=== PATIENT | male | born 1965 | race Caucasian/White ===

== ENCOUNTER 2025-03-02 09:47 | Outpatient (AMB) | payer BC, SELFPAY ==
--- OUTSIDE RECORDS SUMMARY | 2007-01-14 09:31 | XMS_ITS | Continuity of Care Document ---
Author Organization [facility] Address [address] [place] [address] Phone Care Team Providers Care Candy Department Manager Name Role Phone Ellis Estrella MD Unavailable Unavailable Allergies, Adverse Reactions, Alerts Substance Reaction Status Criticality No Known Allergies Active No Inform ation Procedures Procedure Date F/u Visit Incld Global Offic/outpt E&m [facility] Advance Directives Directive Yes / No Effective Date File Name No Information Encounters Encounter Description Practice Location Reason(s) For Visit Diagnoses Date Provider Providers Copied on Encounter [facility], [address], [place], [place], [id number], tel:[phone] [place] [facility] WW bp check (chief complaint) No Information Delores Corral. [address], [id number], [place]. tel:[phone] Referring Provider: Ellis Estrella MD, [address], [address]. tel:[phone] Offic/outpt E&m [facility], [address], [place], [place], [id number], tel:[phone] [place] [facility] WW physical for GYM (chief complaint) OBESITY UNSPECIFIED Delores Corral. [address], [id number], [place]. tel:[phone] Referring Provider: Ellis Estrella MD, [address], [address]. tel:[phone] Family History Family Member Type Diagnosis Age [...]
--- OUTSIDE RECORDS SUMMARY | 2008-11-11 10:29 | XMS_ITS | Continuity of Care Document ---
Author Organization [facility] Address [address] [place] [address] Phone Care Team Providers Care Biochemistry Specialist Name Role Phone Franky Katz MD Unavailable Unavailable Allergies, Adverse Reactions, Alerts Substance Reaction Status Criticality No Known Allergies Active No Inform ation Medications Medication Instructions Dosage Effective Dates (start - stop) Status Comments PHENERGAN VC WITH CODEINE 5-10-6.25SYRUP one teaspoon q 4 hours prn cough four oz. - Active Z-Estevan (Zithromax) TABLET as dir - Active Procedures Procedure Date Offic/outpt E&m New Mod Sever Ecg-routine 12 Lead; W/intrpt Advance Directives Directive Yes / No Effective Date File Name No Information Encounters Encounter Description Practice Location Reason(s) For Visit Diagnoses Date Provider Providers Copied on Encounter [facility] [address] [place] [address], [id number], tel:[phone] [facility] No Information Gianna Wilkins. [address] [place] [address], [address], [place]. tel:[phone] Referring Provider: Franky Burnett, [address] [place] [address], [address]. tel:[phone] [facility] [address], [place], [id number], tel:[phone] [facility]. No Information Gianna Wilkins. [address], [place], [address], [place]. tel:[phone] Referring Provider: Franky Burnett, [address], [place], [address]. tel:[phone] Offic/outpt E&m New Mod Sever [facility] [address], [place], [id number], tel:[phone] [facility], [facility]. No Information Gianna Wilkins. [address], [place], [address], [place]. tel:[phone] Referring Provider: Franky Burnett, [address], [place], [address]. tel:[phone] Family History Family Member Type Diagnosis Age At Onset No Information Payers Payer name Insurance type Covered green party ID Authoriza timahnaz(s) [facility] CI [id number] Social History Type Description Quantity Date Captured Comments Sex Male Smoking Status No Information Chief Complaint And Reason For Visit No Information Reason For Referral Reason For Referral No Information History Of Present Illness Encounter Date Complaint History Of Prese nt Illness No Information Functional Status Date Functional Assessmen t No Information Instructions Date Instruction Additional Infor mation No Information Assessments Type Assessment Date No Information Patient Care Teams Name Effective Dates (start - stop) Status Members No Information
--- NOTE | 2025-03-02 09:48 | A.OFFPC_ITS ---
Vital Signs 03/02/25 09:53 Height 5 ft 5.79 in Weight 203 lb 4 oz BMI 33.0 BP 158/86 H Blood Pressure Location Rt femoral Position Sitting Respiration 16 Pulse 67 Pulse Source Pulse Oximeter Temp 98 F Temp Source Temporal Artery Scan Pulse Oximetry (%) 97 Oxygen Delivery Method Room Air Intake Visit Reasons: physical Secretary Book Keeper Required: No Accompanied by: Self / Same As Patient Allergies No Known Allergies Allergy (Verified 03/02/25 10:04) Medication List - Last Reconciled 03/02/25 by Jenna Nichols PA-C sildenafil 100 mg PO DAILY PRN Tobacco use date assessed: 03/02/25 Dental Screening Dental Screen Date: 03/02/25 Did you have a dental visit in the last 12 months?: Yes Did you have a dental problem in the last 6 months where you did not have access to dental care?: No Was dental information given to patient?: Patient has dentist HPI physical HPI Details The patient is a 60-year-old male presenting for a physical examination and establishment of care. The patient has a history of hypertension, with a current blood pressure reading of 150/86 mmHg, which was rechecked and noted to be 187/29 mmHg. He reports anxiety during medical visits, which may contribute to elevated readings. A heart murmur was detected during the examination, described as loud and possibly indicative of stenosis. The patient has no history of chest pain or shortness of breath, and this is the first time a murmur has been noted. The patient has a history of psoriasis, primarily affecting him during the . He is followed by [facility] and has not been prescribed topical treatments. The patient underwent a colonoscopy on 01/27/2018, which revealed a small polyp that was removed. He was advised to return in five years, but follow-up appointments were repeatedly canceled. Social History - Family: , previously worke d at [employer]. - Healthcare Utilization: Regular visits to eye doctor and dentist three times a year. [facility] Medical History (Updated 03/02/25 @ 10:32 by Jenna Nichols PA-C) Class 1 obesity with body mass index (BMI) of 33.0 to 33.9 in adult Elevated blood pressure reading Preventative health care Psoriasis Heart murmur Annual physical exam Surgical History History of colonoscopy (~01/27/18) Family History Father Pancreatic cancer Mother High blood pressure Social History Housing: House Alcohol intake: current Alcohol intake frequency: 0-2 drinks per day Patient Tobacco Use Status: Never used Tobacco service: No Current occupational status: employed Cognitive needs: No Hearing needs: No Vision needs: Yes (rx glasses) Questionnaire PHQ-9 Over the last 2 weeks, how often have you been bothered by any of the following problems? 1. Little interest or pleasure in doing things: not at all 2. Feeling down, depressed, or hopeless: not at all 3. Trouble falling or staying asleep, or sleeping too much: not at all 4. Feeling tired or having little energy: not at all 5. Poor appetite or overeating: not at all 6. Feeling bad about yourself - or that you are a failure or have let yourself or your family down: not at all 7. Trouble concentrating on things, such as reading the newspaper or watching television: not at all 8. Moving or speaking so slowly that other people could have noticed. Or the opposite - being so fidgety or restless that you have been moving around a lot more than usual: not at all 9. Thoughts that you would be better off or of hurting yourself in some way: not at all Total score: 0 Depression Screening Interpretation: Negative Depression Screening Done: Yes 92696 - PHQ-9 Billing: Yes Source: Developed by Drs. Trevin Melo, Melba Vazquez, Trev Schrader and colleagues, with an educational brenda from [employer]. Thrive Questionnaire Date Thrive assessed: 03/02/25 I am a: Patient What is your living situation today?: I have a steady place to live Within the past 12 months, did the food you bought not last and you didn't have the money to get more?: Never true Within the past 12 months, did you worry whether your food would run out before you got money to buy more?: Never true Do you have trouble paying for medicines?: No Do you have trouble getting transportation to medical appointments?: No Do you have trouble paying your heating and electricity bill?: No Do you have trouble taking care of your child, family member or friend?: No Do you have trouble with day-to-day activities such as bathing, preparing meals, shopping, managing finances, etc.?: No Are you currently unemployed and looking for a job?: No Are you interested in more education?: No Please select the resources that you would like help with: None Currently or been in a relationship where the following occur: No concerns reported THRIVE Score: 0 AUDIT C Alcohol Use Questionnaire (AUDIT-C) 1. How often do you have a drink containing alcohol?: 4 or more times a week 2. How many drinks containing alcohol do you have on a typical day when you are drinking?: 1 or 2 3. How often do you have six or more drinks on one occasion?: Never Total Score: 4 Score Reviewed/Action Taken: No JUSTIN-7 AMB Questionnaire JUSTIN-7 Date JUSTIN - 7 assessed: 03/02/25 Feeling nervous, anxious, or on edge: 0 = Not at all Not being able to stop or control worryin = Not at all Worrying too much about different things: 0 = Not at all Trouble relaxin = Not at all Being so restless that it is hard to sit still: 0 = Not at all Becoming easily annoyed or irritable: 0 = Not at all Feeling afraid as if something awful might happen: 0 = Not at all Total JUSTIN-7 score (0-4 normal; 5-9 mild; 10-14 moderate; 15-21 severe): 0 Source: Developed by Drs. Trevin Melo, Melba Vazquez, Trev Schrader and colleagues, with an educational brenda from [employer]. JUSTIN-7 Assessment Billing JUSTIN-7 Assessment Tool: JUSTIN-7 Assessment 62418 Review of Systems Const Details: - Cardiovascular: Denies chest pain, orthopnea, or syncope. - Respiratory: Denies dyspnea, cough, or wheezing. - Dermatological: Reports psoriasis, primarily in winter. - Gastrointestinal: Denies abdominal pain, black or bloody stools, or unintentional weight loss. - Genitourinary: Denies dysuria or urinary hesitancy. - Neurological: Denies sleep apnea or sleep disturbances. All systems reviewed & are unremarkable except as noted in HPI and below Physical exam (Primary Care) Vital Signs: Last Vital Signs Temp 98 F 03/02/25 09:53 Pulse 67 03/02/25 09:53 Resp 16 03/02/25 09:53 BP 158/86 H 03/02/25 09:53 Pulse Ox 97 03/02/25 09:53 Oxygen Delivery Method Room Air 03/02/25 09:53 Care Plan Goal for BP management: <140/90 patient to monitor blood pressure over the next month and return with blood pressure diary BMI result Body Mass Index 33.0 BMI Assessment/Plan discussion: High BMI High, discussed plan: lifestyle, weight reduction, dietary, physical activity and alcohol moderation Tobacco/Smoking Status: Tobacco use Status Tobacco use date assessed 03/02/25 03/02/25 09:52 Patient Tobacco Use Status Never used Tobacco 03/02/25 09:57 PHQ-9: PHQ-9 Score PHQ-9: Total score 0 03/02/25 10:05 Depression Screening Interpretation: Negative Thrive Assessment: Date of Thrive Assessment Date Thrive assessed 03/02/25 03/02/25 09:52 Currently or been in a relationship where the following occur: No concerns reported Const Other: Appearance: Alert. Oriented X3. No acute distress. Head: Normal external exam. Normocephalic. Atraumatic. Eyes: Pupils are equal, round, and reactive to light. Extraocular movements intact. Conjunctiva and sclera normal. Eyelids normal. Ears: External auditory canal normal. Tympanic membranes normal. No trouble hearing. Throat: Pharynx normal. Uvula midline. Moist mucous membranes. Neck: Normal inspection. Neck supple. Full range of motion. No adenopathy. Thyroid Normal. No meningeal signs. No neck mass noted. Cardiovascular: Heart murmur noted. Normal heart rate and rhythm. Pulses normal throughout. Respiratory: No respiratory distress. Painless inspiration. Breath sounds normal. No wheezes/rales/rhonchi noted. Chest nontender. No accessory muscle usage noted or decreased air movement noted. Abdomen: Soft and nontender. No distention noted. No organomegaly noted. Back: No costovertebral angle tenderness. Full range of motion noted. Skin: Skin warm and dry. Normal skin color. Normal skin turgor. No rashes/lesions/lacerations noted. Psoriasis noted, mostly in winter. Extremities: No lower extremity edema. Extremities exhibit normal range of motion. Neuro: Oriented X 3. No motor deficit. No sensory deficit. Reflexes normal. Coding Level of Care Code New Pt Level 4 (53723) New Pt Prev Care 40-64y(79278) Diagnoses Annual physical exam Z00.00 Heart murmur R01.1 Psoriasis L40.9 Preventative health care Z00.00 Elevated blood pressure reading R03.0 Class 1 obesity with body mass index (BMI) of 33.0 to 33.9 in adult E66.811; Z68.33 Additional Codes JUSTIN-7 Assessment Billing - JUSTIN-7 Assessment Tool: JUSTIN-7 Assessment 47859 ([id number]) PHQ-9 - 65974 - PHQ-9 Billing: Yes ([id number]) Assessment & Plan Assessment & Plan (1) Annual physical exam: Code(s): Z00.00 - Encounter for general adult medical examination without abnormal findings Category: Medical (2) Heart murmur: Code(s): R01.1 - Cardiac murmur, unspecified Category: Medical Plan: The patient's blood pressure was noted to be elevated at 150/86 mmHg, with a subsequent reading of 187/29 mmHg, likely influenced by anxiety during the visit. The patient was advised to monitor blood pressure at home and return with readings in one to two months. (3) Psoriasis: Code(s): L40.9 - Psoriasis, unspecified Category: Medical Plan: The patient has a history of psoriasis, primarily in winter, with no current topical treatment prescribed. Continued follow-up with dermatology is recommended. (4) Preventative health care: Code(s): Z00.00 - Encounter for general adult medical examination without abnormal findings Category: Medical Plan: The patient is overdue for a follow-up colonoscopy, initially scheduled five years post-2018, but repeatedly canceled. Arrangements will be made to reschedule the procedure. (5) Elevated blood pressure reading: Code(s): R03.0 - Elevated blood-pressure reading, without diagnosis of hypertension Category: Medical Plan: The patient's blood pressure was noted to be elevated at 150/86 mmHg, with a subsequent reading of 187/29 mmHg, likely influenced by anxiety during the visit. The patient was advised to monitor blood pressure at home and return with readings in one to two months. (6) Class 1 obesity with body mass index (BMI) of 33.0 to 33.9 in adult: Code(s): E66.811 - Obesity, class 1; Z68.33 - Body mass index [BMI] 33.0-33.9, adult Category: Medical Plan: Patient to improve diet and exercise regimen. Condition is chronic and stable will continue to monitor. Plan Plan Patient was informed and verbally consented to the use of an ambient scribe for clinic note documentation during this visit. 1. Hypertension The patient's blood pressure was noted to be elevated at 150/86 mmHg, with a subsequent reading of 187/29 mmHg, likely influenced by anxiety during the visit. The patient was advised to monitor blood pressure at home and return with readings in one month. 2. Heart Murmur A loud heart murmur was detected, prompting a referral for an echocardiogram to assess for potential stenosis. A cardiology referral will be considered based on the echocardiogram results. 3. Psoriasis The patient has a history of psoriasis, primarily in winter, with no current topical treatment prescribed. Continued follow-up with dermatology is recommended. 4. Preventative Care: Colonoscopy The patient is overdue for a follow-up colonoscopy, initially scheduled five years post-2018, but repeatedly canceled. Arrangements will be made to reschedule the procedure. During the visit, I discussed the patient's elevated blood pressure readings and the potential influence of anxiety on these measurements. I explained the significance of the detected heart murmur and the need for an echocardiogram to assess its nature. We also reviewed the patient's overdue colonoscopy and the importance of rescheduling it. Orders: Orders Complete Blood Count Auto Diff Today Z00.00 - Encounter for general adult medical examination without abnormal findings Hemoglobin A1c Today Z00.00 - Encounter for general adult medical examination without abnormal findings TSH reflex Free T4 Today Z00.00 - Encounter for general adult medical examination without abnormal findings Lipid Panel Today Z00.00 - Encounter for general adult medical examination without abnormal findings Liver Panel Today Z00.00 - Encounter for general adult medical examination without abnormal findings C Reactive Protein Today Z00.00 - Encounter for general adult medical examination without abnormal findings Comprehensive [place]. Panel Fast Today Z00.00 - Encounter for general adult medical examination without abnormal findings PSA,Total (Free>4and<10) Today Z00.00 - Encounter for general adult medical examination without abnormal findings Vitamin B12 and Folate Today Z00.00 - Encounter for general adult medical examination without abnormal findings Vitamin D 25-OH Total Today Z00.00 - Encounter for general adult medical examination without abnormal findings Magnesium Today Z00.00 - Encounter for general adult medical examination without abnormal findings CA echo transthoracic complete Today R01.1 - Cardiac murmur, unspecified Referrals Gastroenterology Referral Z12.11 - Encounter for screening for malignant neoplasm of colon Patient Instructions: - Monitor blood pressure at home daily and record readings. - Schedule and complete the recommended blood tests before the next visit. - Await scheduling for an echocardiogram and follow up with cardiology if necessary. - Reschedule and complete the overdue colonoscopy.
[2025-03-02 09:53] VITALS: BP 158/86; PULSE 67; RESP 16; TEMP 36.6; O2SAT 97; BMI 33.0
== END 2025-03-02 10:31 | disposition home or self-care (01) ==
LOC: HO.HMCSH 09:47
PROVIDERS: PCP Internal Medicine; Visit Provider Physician Assistant Medical
DX: Z00.00 Encounter for general adult medical examination without abnormal findings (principal); R01.1 Cardiac murmur, unspecified; L40.9 Psoriasis, unspecified; E66.811 Obesity, class 1; Z68.33 Body mass index [BMI] 33.0-33.9, adult; R03.0 Elevated blood-pressure reading, without diagnosis of hypertension

== ENCOUNTER → 2025-03-02 09:47 | Outpatient (BNVA) | payer BC, SELFPAY | PROVIDERS: PCP Internal Medicine; Visit Provider Physician Assistant Medical | DX: Z00.00 Encounter for general adult medical examination without abnormal findings (principal); I10 Essential (primary) hypertension; R01.1 Cardiac murmur, unspecified; L40.9 Psoriasis, unspecified; R03.0 Elevated blood-pressure reading, without diagnosis of hypertension; E66.811 Obesity, class 1; Z68.33 Body mass index [BMI] 33.0-33.9, adult | CPT/HCPCS: 96127 ==

== ENCOUNTER 2025-04-02 09:32 | Outpatient (AMB) | payer BC, SELFPAY ==
[2025-04-02 09:33] VITALS: BP 158/72; PULSE 70; RESP 14; TEMP 36.7; O2SAT 97; BMI 31.3
--- NOTE | 2025-04-02 09:33 | MHC.PC.OV ---
Vital Signs 04/02/25 09:33 04/02/25 12:42 Height 5 ft 6.14 in Weight 195 lb BMI 31.3 BP 158/72 H 141/68 H Blood Pressure Location Rt brachial Position Sitting Respiration 14 Pulse 70 65 Pulse Source Pulse Oximeter Temp 98.1 F Temp Source Temporal Artery Scan Pulse Oximetry (%) 97 Oxygen Delivery Method Room Air Intake Visit Reasons: 1 month follow up Resource Coordinator Required: No Accompanied by: Self / Same As Patient Allergies No Known Allergies Allergy (Verified 04/02/25 12:42) Medication List - Last Reconciled 04/02/25 by Jenna Nichols PA-C ketoconazole 2% topical sildenafil 100 mg PO DAILY PRN Tobacco use date assessed: 04/02/25 Dental Screening Dental Screen Date: 03/02/25 HPI 1 month follow up HPI Details The patient is a 60-year-old male presenting for a blood pressure check. The patient has a history of elevated blood pressure readings at home, prompting lifestyle modifications including reduced alcohol consumption and dietary changes such as cutting out salt and reducing portion sizes. He has successfully lost weight, reducing from 203 pounds to 194 pounds. Despite these changes, the patient expresses a desire to avoid medication if possible, although he acknowledges that his blood pressure remains elevated. Blood pressure readings during the visit varied, with measurements including 173/93 mmHg and 141/68 mmHg. The patient reports no symptoms of dizziness or feeling unwell despite elevated readings. He continues to consume a glass or two of wine with dinner but has eliminated beer and scotch, opting for tea instead. Social History - Alcohol consumption: Reduced intake, now limited to a glass or two of wine with dinner, no beer or scotch. - Dietary habits: Eliminated salt and reduced portion sizes to manage blood pressure. - Weight management: Successfully lost weight from 203 pounds to 194 pounds. [facility] Medical History (Updated 04/02/25 @ 12:49 by Jenna Nichols PA-C) Hypertension Class 1 obesity with body mass index (BMI) of 33.0 to 33.9 in adult Elevated blood pressure reading Preventative health care Psoriasis Heart murmur Annual physical exam Surgical History History of colonoscopy (~01/27/18) Family History Father Pancreatic cancer Mother High blood pressure Social History Housing: House Alcohol intake: current Alcohol intake frequency: 0-2 drinks per day Patient Tobacco Use Status: Never used Tobacco service: No Current occupational status: employed Cognitive needs: No Hearing needs: No Vision needs: Yes (rx glasses) Questionnaire PHQ-9 Over the last 2 weeks, how often have you been bothered by any of the following problems? 1. Little interest or pleasure in doing things: not at all 2. Feeling down, depressed, or hopeless: not at all 3. Trouble falling or staying asleep, or sleeping too much: not at all 4. Feeling tired or having little energy: not at all 5. Poor appetite or overeating: not at all 6. Feeling bad about yourself - or that you are a failure or have let yourself or your family down: not at all 7. Trouble concentrating on things, such as reading the newspaper or watching television: not at all 8. Moving or speaking so slowly that other people could have noticed. Or the opposite - being so fidgety or restless that you have been moving around a lot more than usual: not at all 9. Thoughts that you would be better off or of hurting yourself in some way: not at all Total score: 0 Depression Screening Interpretation: Negative Depression Screening Done: Yes 21674 - PHQ-9 Billing: Yes Source: Developed by Drs. Trevin Melo, Melba Vazquez, Trev Schrader and colleagues, with an educational brenda from [employer]. Thrive Questionnaire Date Thrive assessed: 03/02/25 I am a: Patient What is your living situation today?: I have a steady place to live Within the past 12 months, did the food you bought not last and you didn't have the money to get more?: Never true Within the past 12 months, did you worry whether your food would run out before you got money to buy more?: Never true Do you have trouble paying for medicines?: No Do you have trouble getting transportation to medical appointments?: No Do you have trouble paying your heating and electricity bill?: No Do you have trouble taking care of your child, family member or friend?: No Do you have trouble with day-to-day activities such as bathing, preparing meals, shopping, managing finances, etc.?: No Are you currently unemployed and looking for a job?: No Are you interested in more education?: No Please select the resources that you would like help with: None Currently or been in a relationship where the following occur: No concerns reported THRIVE Score: 0 AUDIT C Alcohol Use Questionnaire (AUDIT-C) 1. How often do you have a drink containing alcohol?: 4 or more times a week 2. How many drinks containing alcohol do you have on a typical day when you are drinking?: 1 or 2 3. How often do you have six or more drinks on one occasion?: Never Total Score: 4 Score Reviewed/Action Taken: No JUSTIN-7 AMB Questionnaire JUSTIN-7 Date JUSTIN - 7 assessed: 03/02/25 Feeling nervous, anxious, or on edge: 0 = Not at all Not being able to stop or control worryin = Not at all Worrying too much about different things: 0 = Not at all Trouble relaxin = Not at all Being so restless that it is hard to sit still: 0 = Not at all Becoming easily annoyed or irritable: 0 = Not at all Feeling afraid as if something awful might happen: 0 = Not at all Total JUSTIN-7 score (0-4 normal; 5-9 mild; 10-14 moderate; 15-21 severe): 0 Source: Developed by Drs. Trevin Melo, Melba Vazquez, Trev Schrader and colleagues, with an educational brenda from [employer]. JUSTIN-7 Assessment Billing JUSTIN-7 Assessment Tool: JUSTIN-7 Assessment 44630 Review of Systems Const Details: - Cardiovascular: Denies dizziness or feeling unwell despite elevated blood pressure readings. All systems reviewed & are unremarkable except as noted in HPI and below Physical exam (Primary Care) Vital Signs: Last Vital Signs Temp 98.1 F 04/02/25 09:33 Pulse 70 04/02/25 09:33 Resp 14 04/02/25 09:33 BP 158/72 H 04/02/25 09:33 Pulse Ox 97 04/02/25 09:33 Oxygen Delivery Method Room Air 04/02/25 09:33 Care Plan Goal for BP management: <140/90 patient to continue monitor his blood pressure improve his diet and exercise and return in 2 months for repeat blood pressure check may consider starting on blood pressure medication at that time discussed at this visit patient did not want to start medication at this time BMI result Body Mass Index 31.3 BMI Assessment/Plan discussion: High BMI High, discussed plan: lifestyle, weight reduction, dietary, physical activity, alcohol moderation and other Tobacco/Smoking Status: Tobacco use Status Tobacco use date assessed 04/02/25 04/02/25 09:34 Patient Tobacco Use Status Never used Tobacco 04/02/25 09:34 PHQ-9: PHQ-9 Score PHQ-9: Total score 0 04/02/25 10:00 Depression Screening Interpretation: Negative Thrive Assessment: Date of Thrive Assessment Date Thrive assessed 03/02/25 04/02/25 09:34 Currently or been in a relationship where the following occur: No concerns reported Const Other: Appearance: Alert. Oriented X3. No acute distress. Head: Normal external exam. Normocephalic. Atraumatic. Eyes: Pupils are equal, round, and reactive to light. Extraocular movements intact. Conjunctiva and sclera normal. Eyelids normal. Ears: External auditory canal normal. Tympanic membranes normal. Earwax noted. Throat: Pharynx normal. Uvula midline. Moist mucous membranes. Neck: Normal inspection. Neck supple. Full range of motion. Cardiovascular: Blood pressure readings varied, with a high of 173/93 and a low of 141/68. Normal heart rate and rhythm. Heart sound normal. No murmurs noted. Pulses normal throughout. Respiratory: No respiratory distress. Painless inspiration. Breath sounds normal. No wheezes/rales/rhonchi noted. Chest nontender. No accessory muscle usage noted or decreased air movement noted. Back: Full range of motion noted. Skin: Skin warm and dry. Normal skin color. Normal skin turgor. No rashes/lesions/lacerations noted. Extremities: No lower extremity edema. Extremities exhibit normal range of motion. Neuro: Oriented X 3. No motor deficit. No sensory deficit. Reflexes normal. Office Procedures Flu Questionnaire Does the patient have a severe egg allergy?: No Does the patient have severe life threatening allergies?: No Does the patient have a fever or illness today?: No Has the patient ever had Guillain-[place] Syndrome?: No Has the patient ever had any past reaction to a flu shot?: No Immunizations Fluarix [id number] (PF) 45 mcg (15 mcg x 3)/0.5 mL IM syringe Performing Provider: Jenna Nichols PA-C [facility] [place] [facility] Documented (not given) by: ANTHONY Aburto on 04/02/25 09:43 Reason Not Given: Patient Refused Results Reviewed Results Reviewed: - Labs: Glucose normal, kidney function normal, sodium normal, potassium normal, chloride normal, carbon dioxide normal, liver enzymes normal, PSA normal, vitamin B12 normal, thyroid normal, magnesium normal, CBC normal. - Pending: Folic acid, hemoglobin A1c, vitamin D. Coding Level of Care Code Est Pt Level 4 (40165) Complex EM visit Add On G2211 Diagnoses Hypertension I10 Additional Codes JUSTIN-7 Assessment Billing - JUSTIN-7 Assessment Tool: JUSTIN-7 Assessment 37395 ([id number]) PHQ-9 - 07184 - PHQ-9 Billing: Yes ([id number]) Assessment & Plan Assessment & Plan (1) Hypertension: Code(s): I10 - Essential (primary) hypertension Category: Medical Plan: The patient is advised to continue monitoring blood pressure at home and maintain lifestyle modifications, including reduced alcohol intake and dietary changes. A follow-up appointment is scheduled in two months to reassess blood pressure and consider medication if readings remain elevated. Plan Plan Patient was informed and verbally consented to the use of an ambient scribe for clinic note documentation during this visit. 1. Essential Hypertension The patient is advised to continue monitoring blood pressure at home and maintain lifestyle modifications, including reduced alcohol intake and dietary changes. A follow-up appointment is scheduled in two months to reassess blood pressure and consider medication if readings remain elevated. During the visit, we discussed the importance of lifestyle modifications in managing hypertension, including dietary changes and reducing alcohol consumption. I advised the patient to continue monitoring his blood pressure at home and scheduled a follow-up in two months to reassess his condition. We agreed to consider medication if his blood pressure remains elevated at that time. Orders: Orders Influenza [id number] Immunization Today Z23 - Encounter for immunization Patient Instructions: - Continue monitoring blood pressure at home regularly. - Maintain dietary changes, including reducing salt intake and portion sizes. - Limit alcohol consumption to a glass or two of wine with dinner. - Return for a follow-up appointment in two months to reassess blood pressure.
[2025-04-02 12:42] VITALS: BP 141/68; PULSE 65
== END 2025-04-02 10:26 | disposition home or self-care (01) ==
LOC: HO.HMCSH 09:32
PROVIDERS: PCP Internal Medicine; Visit Provider Physician Assistant Medical
DX: I10 Essential (primary) hypertension (principal); Z23 Encounter for immunization

== ENCOUNTER → 2025-04-02 09:32 | Outpatient (BNVA) | payer BC, SELFPAY | PROVIDERS: PCP Internal Medicine; Visit Provider Physician Assistant Medical | DX: I10 Essential (primary) hypertension (principal); Z28.21 Immunization not carried out because of patient refusal | CPT/HCPCS: 90471; 96127 ==

== ENCOUNTER → 2025-04-05 07:48 | Outpatient (REF) | payer BC, SELFPAY ==
--- OUTSIDE RECORDS SUMMARY | 2007-01-14 09:31 | XMS_ITS | Continuity of Care Document ---
Author Organization [facility] Address [address] [place] [address] Phone Care Team Providers Care Province Archivist Name Role Phone Ellis Estrella MD Unavailable Unavailable Allergies, Adverse Reactions, Alerts Substance Reaction Status Criticality No Known Allergies Active No Inform ation Procedures Procedure Date F/u Visit Incld Global Offic/outpt E&m [facility] Advance Directives Directive Yes / No Effective Date File Name No Information Encounters Encounter Description Practice Location Reason(s) For Visit Diagnoses Date Provider Providers Copied on Encounter [facility], [address], [place], [place], [id number], tel:[phone] [facility] WW bp check (chief complaint) No Information Delores Corral. [address], [id number], [place]. tel:[phone] Referring Provider: Ellis Estrella MD, [address], [address]. tel:[phone] Offic/outpt E&m [facility], [address], [place], [place], [id number], tel:[phone] [facility] WW physical for GYM (chief complaint) OBESITY UNSPECIFIED Delores Corral. [address], [id number], [place]. tel:[phone] Referring Provider: Ellis Estrella MD, [address], [address]. tel:[phone] Family History Family Member Type Diagnosis Age At Onset No Information Payers Payer name Insurance type Covered libertarian ID Authoriza timahnaz(s) No Information Social History Type Description Quantity Date Captured Comments Sex Male Smoking Status No Information Vital Signs Date / Time: Height Weight BMI Pulse Rate Blood Pressure Temperature Respiratory Rate Body Surface Area Head Circumference Head Circ. Percentile Wt./Jaime. Percentile BMI percentile Pulse Ox Inhaled Ox 3:20 PM 78 /min 126/90 mm[Hg] 97.70 F 16 /min 1:39 PM 120/70 mm[Hg] Chief Complaint And Reason For Visit From encounter dated '01/14/2007 13:31'. bp check (chief complaint) Reason For Referral Reason For Referral No Information History Of Present Illness Encounter Date Complaint History Of Prese nt Illness bp check physical for GYM Functional Status Date Functional Assessmen t No Information Instructions Date Instruction Additional Infor mation No Information Assessments Type Assessment Date No Information Patient Care Teams Name Effective Dates (start - stop) Status Members No Information
--- OUTSIDE RECORDS SUMMARY | 2008-11-11 10:29 | XMS_ITS | Continuity of Care Document ---
Author Organization [facility] Address [address] [place] [address] Phone Care Team Providers Care Pipe Fitter Gas Pipe Name Role Phone Franky Katz MD Unavailable [...] Diagnoses Date Provider Providers Copied on Encounter [facility] [address] [place] [address], [id number], tel:[phone] [facility]. No Information Gianna Wilkins. [address] [place] [address], [address], [place]. tel:[phone] Referring Provider: Franky Burnett, [address] [place] [address], [address]. tel:[phone] [facility] [address], [place], [id number], tel:[phone] [facility]. No Information Gianna Wilkins. [address], [place], [address], [place]. tel:[phone] Referring Provider: Franky Burnett, [address], [place], [address]. tel:[phone] Offic/outpt E&m New Mod Sever [facility] [address], [place], [id number], tel:[phone] [facility]. No Information Gianna Wilkins. [address], [place], [address], [place]. tel:[phone] Referring Provider: Franky Burnett, [address], [place], [address]. tel:[phone] Family History Family Member Type Diagnosis Age At Onset No Information Payers Payer name Insurance type Covered republican ID Authoriza timahnaz(s) [facility] [place] [id number] Social History Type Description Quantity Date Captured [...]
--- OUTSIDE RECORDS SUMMARY | 2025-04-05 07:51 | XMS_ITS ---
Author Name Mushtaq Ardon Address Unknown Organization [facility] Care Team Providers Care Cab Station Attendant Name Role Phone Unavailable Primary Care Physician Unavailab le History Of Present Illness This is a 60 year old male who is an established patient who is being seen for an evaluation of skin lesions.Location: left medial superior eyelidDuration: yearsPertinent History: family history of non-melanoma skin cancerPertinent Negatives: no history of previous skin cancer, no history of melanoma, and no family history of melanomaAdditional Visit Reasons: education and counseling about sun exposure, evaluation for suspicious growths, and evaluation of current neviAdditional History: Patientnotes bump on right neck and skin tag on left eyelid, states neither are bothersome. Medications Medication Generic Name RxNorm Strength Strength Unit Route Dose Dose Form Frequency Date Started Date Ended Status Indication Sig ketoconazol e ketocona zole 201816 2 % Topica l shamp oo BIW 04/01/20 active Lath er onto scal p once ryan y and let sit for 5-10 maru christie. Alte rnat e with OTC medi rodrigo d sham poos . Problems Problem Code Type Status Date of Diagnosis Da te of Resolution Seborrheic dermatitis (disorder) 83890979(SNO MED) Diagnosis active 04/01/2025 Melanocytic nevus (disorder) 229393770(SN OMED) Diagnosis active 04/01/2025 Disorder of skin (disorder) 97146836(SNO MED) Diagnosis active 04/01/2025 Seborrheic keratosis (disorder) 168516824(SN OMED) Diagnosis active 04/01/2025 Disorder of pigmentation (disorder) 100071470(SN OMED) Diagnosis active 04/01/2025 Hemangioma of skin and subcutaneous tissue (disorder) 764424976(SN OMED) Diagnosis active 04/01/2025 Benign neoplasm of skin of left lower limb (disorder) 444275569838 9109(SNOMED) Diagnosis active 04/01/2025 Benign neoplasm of skin of right lower limb (disorder) 502686066215 9100(SNOMED) Diagnosis active 04/01/2025 Patient encounter status (finding) 256549536(SN OMED) Diagnosis active 04/01/2025 Neoplasm of uncertain behavior of skin (disorder) 20842031(SNO MED) Diagnosis active 02/04/2024 Actinic keratosis (disorder) (SN OMED) Diagnosis active 02/04/2024 Melanocytic nevus (disorder) 630505487(SN OMED) Diagnosis active 02/04/2024 Disorder of skin (disorder) 08969184(SNO MED) Diagnosis active 02/04/2024 Seborrheic keratosis (disorder) 085431649(SN OMED) Diagnosis active 02/04/2024 Disorder of pigmentation (disorder) 519462621(SN OMED) Diagnosis active 02/04/2024 Hemangioma of skin and subcutaneous tissue (disorder) 041961413(SN OMED) Diagnosis active 02/04/2024 Benign neoplasm of skin of left lower limb (disorder) 775770560507 9109(SNOMED) Diagnosis active 02/04/2024 Benign neoplasm of skin of right lower limb (disorder) 081539456307 9100(SNOMED) Diagnosis active 02/04/2024 Patient encounter status (finding) 385043907(SN OMED) Diagnosis active 02/04/2024 Melanocytic nevus (disorder) 629286860(SN OMED) Diagnosis active 12/17/2022 Disorder of skin (disorder) 74748275(SNO MED) Diagnosis active 12/17/2022 Seborrheic keratosis (disorder) 365449428(SN OMED) Diagnosis active 12/17/2022 Disorder of pigmentation (disorder) 804968063(SN OMED) Diagnosis active 12/17/2022 Hemangioma of skin and subcutaneous tissue (disorder) 579916842(SN OMED) Diagnosis active 12/17/2022 Benign neoplasm of skin of left lower limb (disorder) 624787235217 9109(SNOMED) Diagnosis active 12/17/2022 Patient encounter status (finding) 143776406(SN OMED) Diagnosis active 12/17/2022 Eczema (disorder) 45724630(SNO MED) Problem active Results No data Encounters Service provided at [facility], [address] [place] [address], [address], [place], [place] [id number]. Office phonenumber is [phone]. Office fax number is [phone]. Encounter Diagnosis Location Date / Time Type Seborrheic Dermatitis (L21.8 )Melanocytic Nevi (D22.9)Sebaceous Hyperplasia (L73.8)Seborrheic Keratoses (L82.1)Stucco Keratoses (L82.1)Lentigines (L81.4)Barajas Angiomas (D18.01)Dermatofibroma (D23.72,D23.71)Skin Education (Z71.89)Attestation () [facility] 04/01/2025 12:15:00 [facility] [id number] Reason For Referral No data Procedures Procedure Date Documentation of current medications (pr ocedure) 02/04/2024 12:00 am UTC Destruction of premalignant skin lesion (procedure) 02/04/2024 12:00 am [place] Shave biopsy (procedure) 02/04/2024 12:0 0 am UTC Documentation of current medications (pr ocedure) 12/17/2022 12:00 am [place] Documentation of past medical history (p rocedure) Review Of Systems Provider reviewed on Apr 01, 2025.A focused review of systems was performed including Hematologic /Lymphatic and Integumentary.No Problems With Healing, No Problems With Scarring (hypertrophic Or Keloid), And No Problems With Bleeding. Assessment 1.Seborrheic DermatitisCounselingPrescription: ketoconazole 2 % shampoo TP Frequency: BIW2.Melanocytic NeviCounseling3.Sebaceous HyperplasiaCounseling4.Seborrheic KeratosesCounseling5.Stucco Keratoses Counseling6.LentiginesCounseling7.Barajas AngiomasCounseling8.DermatofibromaCounseling9.Skin Educatio [id number].AttestationScribe Attestation:. Plan of Care Future visit for 04/01/2026 - Follow up in 1 year for: Skin Check. Other Instructions: CSE slot. Other Instructions: CSE slot. Code Detail Instructions [id number] ketoconazole 2 % shampoo Lather onto scalp once daily and let sit for 5- 10 minutes. Alternate with OTC medicated shampoos. Instructions * I counseled the patient regarding the following:Skin care: Emollients, shampoos with tar, selenium or zinc pyrithione can improve seborrheic dermatitis.Expectations: Seborrheic Dermatitis is chronic in nature with periods of remissions and flares. Flares can be triggered by stress.Contact office if: Seborrheic dermatitis worsens, or fails to improve despite several months of treatment.I recommended the following: CleansersMoisturizersTopical SteroidsThe following medication counseling was provided:Topical Ketoconazole Counseling: Patient counseled that this medication may cause skin irritation or allergic reactions. In the event of skin irritation, the patient was advised to reduce the amount of the drug applied or use it less frequently. The patient verbalized understanding of the properuse and possible adverse effects of ketoconazole. All of the patient's questions and concerns were a ddressed. * I counseled the patient regarding the following:Instructions: Monthly self- skin checks to monitor for any changes in moles are recommended.Expectations: Benign Nevi are pigmented nests of cells within the skin. No treatment is necessary.Contact Office if: Any moles change in size, shape or color; itch, burn or bleed. * I counseled the patient regarding the following:Skin Care: Sebaceous Hyperplasia can be treated with electrodesiccation or laser.Expectations: Sebaceous Hyperplasia are benign, enlarged oil glands within the skin. * I counseled the patient regarding the following:Skin Care: Seborrheic Keratoses are benign. No treatment is necessary.Expectations: Seborrheic Keratoses are benign warty growths. Patients get more ofthem as they age. * I counseled the patient regarding the following:Skin Care: Seborrheic Keratoses are benign. No treatment is necessary.Expectations: Seborrheic Keratoses are benign warty growths. Patients get more ofthem as they age. * I counseled the patient regarding the following:Expectations: Lentigines are benign pigmented lesions that occur on sun-exposed and sun-damaged skin.I recommended the following: Sunscreen * I counseled the patient regarding the following:Expectations: Barajas Angiomas are benign vascular growths. No treatment is necessary. * I counseled the patient regarding the following:Skin care: Dermatofibromas are benign. They should be surgically removed if symptomatic or if they grow.Expectations: Dermatofibromas are stable scar-like nodules, usually located on the lower extremities. * I counseled the patient regarding the following:Sun screen (SPF 30 or greater) should be applied during peak UV exposure (between 10am and 2pm) and reapplied after exercise or swimming.The ABCDEs of melanoma were reviewed with the patient, and the importance of monthly self-examination of moles was emphasized. Should any moles change in shape or color, or itch, bleed or burn, pt will contact our office for evaluation sooner then their interval appointment.I recommended the following: SunscreenSelf-Skin Exams Social History Code Activity Start Date End Date [id number] (SNOMED) Never smoker Sex male Sexual orientation Unspecified Gender identity Unspecified Vital Signs No data
--- NOTE | 2025-04-05 07:53 | CA_ITS ---
Transthoracic Echocardiogram Patient (Last, First, Middle): Trevin Florez, Gender: Male Date of : 1965 Age: 60 Procedure Date: 04/05/2025 Procedure Type: Transthoracic Echocardiogram Location: OP Height: 172. cm Weight: 88.45 kg BSA: 2.02 m2 Heart Rate: 64 bpm BP: 148 / 80 mmHg Smoking Pipe Coater: STEVAN Referring MD: Jenna Nichols PA-C Symptoms: R01.1 - Cardiac murmur, unspecified Study Quality: Adequate ECG Rhythm: Sinus Conclusions: - The left ventricular systolic function is normal. The calculated ejection fraction is 60% by biplane method. - There is moderate calcification of the aortic valve. There is mild aortic valve stenosis. - There is moderate mitral annular calcification. Findings Left Ventricle Normal left ventricular cavity size. There is mildly increased left ventricular wall thickness. The left ventricular systolic function is normal. The calculated ejection fraction is 60% by biplane method. There is no evidence of regional wall motion abnormalities. Diastolic function is normal for age. Right Ventricle Normal right ventricular cavity size and systolic function. Atria Both atria are normal in size. Aortic Valve There is moderate calcification of the aortic valve. There is mild aortic valve stenosis. There is trace (trivial) aortic valve regurgitation. Mitral Valve There is moderate mitral annular calcification. There is no mitral valve regurgitation. There is no mitral valve stenosis. Pulmonic Valve The pulmonic valve is likely normal. Tricuspid Valve There is trace tricuspid valve regurgitation. There is no evidence of pulmonary hypertension. Great Vessels Top normal ascending aortic size at 3.8 cm. Venous The inferior vena cava is normal in size and collapses greater than 50% with inspiration. Pericardium/Pleural There is no evidence of pericardial effusion. Prior Study Comparison No prior study available for comparison. Measurements 2D Linear Measurements IVSd: 1.13 0.6-0.9/0.6-1.0 cm LVIDd: 4.87 3.9-5.3/4.2-5.9 cm LVIDd Index: 2.41 2.4-3.2/2.2-3.1 cm/m2 LVIDs: 2.73 2.0-3.6 cm LVPWd: 1.18 0.7-1.1 cm LA Diam: 4.00 2.7-3.8/3.0-4.0 cm LAIDs Index: 1.98 1.5-2.3 cm/m2 LV Mass: 264.83 67-162/88-224 g LV Mass Index: 131.10 43-95/49-115 g/m2 LVOT Diam: 2.40 3.0+(-)1.3 cm 2D Systolic Function EF 4C: 59.80 >55% EF 2C: 60.60 >55% EF BiP: 59.60 >55% Mitral Valve MV Pk E: 0.85 MV PK A: 1.01 MV Decel Time: 215.00 E/A: 0.80 E'Lateral: 6.95 E'Medial: 6.20 E/E' Med: 13.80 E/E' Lat: 12.30 PHT: 63.00 MVA PHT: 3.49 Decel Bladen: 3.98 Aortic Valve AoV Pk Jovanny: 2.14 AoV Mn Jovanny: 1.49 AoV VTI: 0.46 AoV Pk Grad: 18.00 Aov Mn Grad: 10.00 MARTHA Cont.VTI: 1.92 LVOT LVOT Pk Jovanny: 0.80 LVOT Mn Jovanny: 0.60 LVOT VTI: 0.20 LVOT Pk Grad: 3.00 LVOT Mn Grad: 2.00 LVOT Diam: 2.40 LVOT Area: 4.52 Diastolic Function MV Pk E: 0.85 MV Pk A: 1.01 E/A: 0.80 E'Medial: 6.20 E/E' Med: 13.80 E' Laterial: 6.95 E/E' Lat: 12.30 Right Ventricle TAPSE (mm): 27.70 TVS' Jovanny: 10.60 Tricuspid Valve TR Pk Jovanny: 1.75 TR Pk Grad: 12.00 RA Press: 3.00 RVSP: 15.00 Great Vessels Aorta Sinus of Valsalva: 3.70 2.0-3.5 cm Ao Asc: 3.60 2.1-3.4 cm Ao Arch: 3.30 Pulmonary Veins Pulm Vein S/D 1.40 Pulmonary Valve PV Pk Jovanny: 0.79 Peak PV Grad: 2.00 Updated in Other Vendor System with Status of Final Gary Mayfield MD electronically signed on 04/05/2025 10:24:24 AM with status of Final
== END ==
LOC: HO.CARD 07:48
PROVIDERS: PCP Internal Medicine; Visit Provider Physician Assistant Medical
DX: R01.1 Cardiac murmur, unspecified (principal)
CPT/HCPCS: 93306

== ENCOUNTER → 2025-04-05 07:53 | Outpatient (BNV) | payer BC, SELFPAY | PROVIDERS: PCP Internal Medicine; Visit Provider Internal Medicine | DX: I34.81 Nonrheumatic mitral (valve) annulus calcification (principal); I35.0 Nonrheumatic aortic (valve) stenosis | CPT/HCPCS: 93306 ==